=== PATIENT | female | born 1980 ===

== ENCOUNTER 2019-04-02 11:45 | Emergency (ER) | payer OTHER ==
[~2019-04-02] VITALS: Ht 172.7 cm; Wt 44.5 kg
[2019-04-02] MEDS ORDERED: KETO10TA2 PO (15:29)
== END 2019-04-02 16:30 ==
LOC: ER 11:45
DX: S53.491A Other sprain of right elbow, initial encounter (principal); W18.39XA Other fall on same level, initial encounter; Y93.89 Activity, other specified; Y92.89 Other specified places as the place of occurrence of the external cause; Y99.8 Other external cause status